=== PATIENT | female | born 1950 | race Caucasian/White ===

== ENCOUNTER 2016-05-16 10:35 | Outpatient (CLI) | payer MEDICARE, MEDICAID ==
[2016-05-16 11:20] LABS: ALT (SGPT) 9 U/L (0-55); AST (SGOT) 21 U/L (5-34); Alkaline Phosphatase 65 U/L (40-150); Bilirubin, Direct 0.1 mg/dL (0.1-0.3); Bilirubin, Total 0.4 mg/dL (0.2-1.2); Protein, Total 7.1 g/dL (5.8-8.1)
== END 2016-05-16 10:36 | disposition home or self-care (01) ==
LOC: BURLAB 10:35
PROVIDERS: ATTEND Internal Medicine
DX: K50.90 Crohn's disease, unspecified, without complications (principal)
CPT/HCPCS: 36415; 80076

== ENCOUNTER 2016-06-20 14:08 | Outpatient (CLI) | payer MEDICARE, MEDICAID ==
[2016-06-20 15:21] LABS: ALT (SGPT) 9 U/L (0-55); AST (SGOT) 18 U/L (5-34); Alkaline Phosphatase 76 U/L (40-150); Bilirubin, Direct 0.1 mg/dL (0.1-0.3); Bilirubin, Total 0.3 mg/dL (0.2-1.2); Protein, Total 7.1 g/dL (5.8-8.1)
--- NOTE | 2016-06-20 20:45 | RAD ---
RIGHT KNEE THREE VIEWS 06/20/16 There is prominent medial joint space narrowing, large osteophytes medially and some bony sclerosis, all consistent with osteoarthritis. A few central osteophytes are forming. The patellofemoral joint shows osteophytes and some irregularity of the articular surface of the patella. No fracture or leslie nt effusion was seen. There are some vague bony densities in the popliteal area that could potential ly be loose bodies, but other imaging studies would be needed to determine this. IMPRESSION: Moderately severe osteoarthritis. POS: HOME
--- NOTE | 2016-06-20 20:47 | RAD ---
LEFT KNEE THREE VIEWS 06/20/16 Comparison is made with the views of the right knee. In similar fashion, there is osteoarthritis con sisting of medial joint space narrowing, osteophytes and slight bony sclerosis. While prominent, it is not quite as bad as the right side. Patellofemoral osteophytes are also present. No fracture or j oint effusion was seen. 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 IMPRESSION: Moderately severe osteoarthritis, though not quite as prominent as the right knee. POS: HOME
--- NOTE | 2016-06-20 20:49 | RAD ---
RIGHT SHOULDER TWO VIEWS 06/20/16 No fracture or dislocation was seen. The AC joint is not widened. There is slight superior subluxati on of the humeral head with narrowing of the space between the acromion and the top of the humeral h ead. This suggests the possibility of chronic rotator cuff thinning. A few osteophytes are seen in t he AC joint. There is no area of bony destruction. IMPRESSION: Degenerative changes and possible rotator cuff thinning as noted above. POS: HOME
== END 2016-06-20 14:09 | disposition home or self-care (01) ==
LOC: BURRAD 14:08
PROVIDERS: ATTEND Physician Assistant
DX: M25.561 Pain in right knee (principal); M25.562 Pain in left knee; K50.90 Crohn's disease, unspecified, without complications; M17.11 Unilateral primary osteoarthritis, right knee
CPT/HCPCS: 36415; 80076

== ENCOUNTER 2016-08-08 09:49 | Outpatient (CLI) | payer MEDICARE, MEDICAID ==
[2016-08-08 10:21] LABS: Hemoglobin 10.1 g/dL (12.0-16.0); Mean Corpuscular HGB CONC 31.8 g/dL (32.0-36.0); Mean Corpuscular Hemoglobin 32.8 pg (27.0-31.0); Mean Platelet Volume 7.2 fL (7.4-10.4); Platelet Count 291 thou/uL (130-400); RBC Distribution Width 15.1 % (11.5-14.5); Red Blood Cell (RBC) Count 3.09 mill/uL (4.20-5.40); White Blood Cell (WBC) Count 6.1 thou/uL (4.8-10.8)
[2016-08-08 11:10] LABS: ALT (SGPT) 9 U/L (0-55); AST (SGOT) 14 U/L (5-34); Albumin 3.8 g/dL (3.4-4.8); Alkaline Phosphatase 70 U/L (40-150); Anion Gap 18 mmol/L (10-20); BUN (Urea Nitrogen) 12 mg/dL (9.8-20.1); Bilirubin, Total 0.3 mg/dL (0.2-1.2); Calc. Creatinine Clearance 0 mL/min (70-130); Calcium 9.1 mg/dL (7.8-10.44); Carbon Dioxide 19 mmol/L (23-31); Chloride 108 mmol/L (98-107); Estimated GFR-MDRD 59; Globulin 2.7 g/dL (2.4-3.5); Glucose 126 mg/dL (80-115); Potassium 4.5 mmol/L (3.5-5.1); Protein, Total 6.5 g/dL (5.8-8.1); Sodium 140 mmol/L (136-145)
== END 2016-08-08 09:50 | disposition home or self-care (01) ==
LOC: BURLAB 09:49
PROVIDERS: ATTEND Internal Medicine
DX: K50.90 Crohn's disease, unspecified, without complications (principal)
CPT/HCPCS: 36415; 80053; 82306; 85027

== ENCOUNTER 2016-11-13 10:23 | Outpatient (CLI) | payer MEDICARE, MEDICAID ==
[2016-11-13 10:47] LABS: Hemoglobin 11.6 g/dL (12.0-16.0); Mean Corpuscular HGB CONC 31.4 g/dL (32.0-36.0); Mean Corpuscular Hemoglobin 32.4 pg (27.0-31.0); Platelet Count 284 thou/uL (130-400); RBC Distribution Width 14.8 % (11.5-14.5); Red Blood Cell (RBC) Count 3.58 mill/uL (4.20-5.40); White Blood Cell (WBC) Count 5.1 thou/uL (4.8-10.8)
[2016-11-13 11:19] LABS: ALT (SGPT) 10 U/L (8-55); AST (SGOT) 16 U/L (5-34); Albumin 3.8 g/dL (3.4-4.8); Alkaline Phosphatase 64 U/L (40-150); Anion Gap 16 mmol/L (10-20); BUN (Urea Nitrogen) 9 mg/dL (9.8-20.1); Bilirubin, Total 0.3 mg/dL (0.2-1.2); Calc. Creatinine Clearance 0 mL/min (70-130); Calcium 9.3 mg/dL (7.8-10.44); Carbon Dioxide 21 mmol/L (23-31); Chloride 108 mmol/L (98-107); Estimated GFR-MDRD 56; Glucose 128 mg/dL (80-115); Potassium 4.3 mmol/L (3.5-5.1); Protein, Total 6.8 g/dL (6.0-8.3); Sodium 141 mmol/L (136-145)
== END 2016-11-13 10:24 | disposition home or self-care (01) ==
LOC: BURLAB 10:23
PROVIDERS: ATTEND Internal Medicine
DX: K56.69 Other intestinal obstruction (principal); Z79.899 Other long term (current) drug therapy
CPT/HCPCS: 36415; 80053; 82306; 85027

== ENCOUNTER 2019-04-08 17:53 | Emergency (ER) | payer MEDICARE, MEDICAID ==
[~2019-04-08 17:53] MED LIST: Iopamidol 370 76% 100 ML VIAL ONE
[2019-04-08 19:01] LABS: #Lymphocytes 0.3 thou/uL (1.20-3.40); #Monocytes 0.2 thou/uL (0.11-0.59); #Neutrophils 3.6 thou/uL (1.40-6.50); %Eosinophils 1.2 % (0.0-10.0); %Lymphocytes 6.2 % (21.0-51.0); %Monocytes 4.9 % (0.0-10.0); %Neutrophils 86.6 % (42.0-75.0); Hemoglobin 10.2 g/dL (12.0-16.0); Mean Corpuscular HGB CONC 30.3 g/dL (32.0-36.0); Mean Corpuscular Hemoglobin 29.8 pg (27.0-31.0); Mean Corpuscular Volume 98.3 fL (78.0-98.0); Mean Platelet Volume 8.3 fL (7.4-10.4); Platelet Count 276 thou/uL (130-400); RBC Distribution Width 14.9 % (11.5-14.5); Red Blood Cell (RBC) Count 3.42 mill/uL (4.20-5.40); White Blood Cell (WBC) Count 4.2 thou/uL (4.8-10.8)
[2019-04-08] MEDS ORDERED: cefTRIAXone\\ROCEPHIN 2 GM VIAL ONE (19:03)
[2019-04-08] MEDS ORDERED: Sodium Chloride 0.9% 100 ML ONE (19:03)
[2019-04-08] MEDS ORDERED: Acetaminophen 500 MG TAB ONE (19:03)
[2019-04-08 19:15] LABS: ALT (SGPT) Less than 7 U/L (8-55); AST (SGOT) 11 U/L (5-34); Albumin 3.7 g/dL (3.4-4.8); Alkaline Phosphatase 76 U/L (40-110); Anion Gap 16 mmol/L (10-20); BUN (Urea Nitrogen) 13 mg/dL (9.8-20.1); Bilirubin, Total 0.5 mg/dL (0.2-1.2); CK (CPK) 30 U/L (29-168); Calc. Creatinine Clearance 0 mL/min (70-130); Calcium 8.9 mg/dL (7.8-10.44); Carbon Dioxide 22 mmol/L (23-31); Chloride 105 mmol/L (98-107); Estimated GFR-MDRD 48; Globulin 2.9 g/dL (2.4-3.5); Glucose 116 mg/dL (80-115); Protein, Total 6.6 g/dL (6.0-8.3); Sodium 139 mmol/L (136-145)
[2019-04-08 19:41] LABS: Bilirubin Small (Negative); Blood, Urine Negative (Negative); Clarity Slightly Cloudy (Clear); Glucose, Urine (Dipstick) Negative (Negative); Leukocyte Negative (Negative); Nitrite Negative (Negative); Protein, Urine (Dipstick) Trace mg/dL (Neg-Trace); Urobilinogen 0.2 mg/dL (Less than 2)
[2019-04-08] MEDS ORDERED: Ketorolac Tromethamine 30 MG/ML VIAL ONE (22:05)
--- NOTE | 2019-04-08 22:22 | CT ---
CT ABDOMEN WITH CONTRAST CT PELVIS WITH CONTRAST: DATE: 04/08/2019 HISTORY: 69-year-old female with fever and left-sided abdominal pain COMPARISON: 05/28/2014 TECHNIQUE: IV injection of iodinated contrast media: administered. Oral contrast media:Not administered FINDINGS: Whereas previously there was a left-sided ileostomy, there is a new finding of a very large 16 x 24 c m defect in the anterior abdominal wall musculature, centered to the left of midline, through which the distal gastric body and antrum, a small portion of the tip of the left lobe of liver, much of the colon, and multiple small bowel loops, herniate into the subcutaneous fat. No small bowel dilation. No mesenteric or omental edema. No other abnormality identified involving liver, pancreas, kidneys, or adrenals. Spleen is at upper limits of normal in size. Atherosclerotic callus patient without aneurysm of abdominal aorta. Decompressed urinary bladder. No free fluid within pelvic cavity or abdominal cavity. No colonic diverticulitis. Suture line at partially herniated portion of colon at right upper quadrant. IMPRESSION: 1) large left anterior abdominal hernia involving a very wide defect in the abdominal wall, containin g portions of colon, small intestine, stomach, and small portion of liver. 2) no evidence of obstruction or strangulation. 3) status post right hemicolectomy.
== END 2019-04-08 22:43 | disposition home or self-care (01) ==
LOC: BURERS 17:53
DX: R50.9 Fever, unspecified (principal); E66.01 Morbid (severe) obesity due to excess calories; D50.9 Iron deficiency anemia, unspecified; K50.90 Crohn's disease, unspecified, without complications; Z79.899 Other long term (current) drug therapy
CPT/HCPCS: 74177; 80053; 81003; 82550; 83605; 85025; 87040; 87086; 87149; 93005; 96365; 96375; J0696; J1885; J3490; Q9967

== ENCOUNTER 2019-08-11 10:56 | Emergency (ER) | payer MEDICARE, MEDICAID, OTHER ==
[2019-08-11 12:02] LABS: ALT (SGPT) 11 U/L (8-55); AST (SGOT) 22 U/L (5-34); Albumin 2.5 g/dL (3.4-4.8); Alkaline Phosphatase 129 U/L (40-110); Anion Gap 16 mmol/L (10-20); BUN (Urea Nitrogen) 43 mg/dL (9.8-20.1); Bilirubin, Total 0.4 mg/dL (0.2-1.2); Calc. Creatinine Clearance 0 mL/min (70-130); Calcium 7.7 mg/dL (7.8-10.44); Carbon Dioxide 15 mmol/L (23-31); Chloride 107 mmol/L (98-107); Estimated GFR-MDRD 22; Globulin 3.1 g/dL (2.4-3.5); Glucose 119 mg/dL (80-115); Potassium 3.8 mmol/L (3.5-5.1); Protein, Total 5.6 g/dL (6.0-8.3); Sodium 134 mmol/L (136-145)
[2019-08-11 12:08] LABS: Hemoglobin 8.9 g/dL (12.0-16.0); Mean Corpuscular HGB CONC 30.2 g/dL (32.0-36.0); Mean Corpuscular Hemoglobin 28.4 pg (27.0-31.0); Mean Platelet Volume 8.5 fL (7.4-10.4); Platelet Count 213 thou/uL (130-400); RBC Distribution Width 14.9 % (11.5-14.5); Red Blood Cell (RBC) Count 3.12 mill/uL (4.20-5.40); White Blood Cell (WBC) Count 2.6 thou/uL (4.8-10.8)
[2019-08-11 12:14] LABS: #Eosinphils 0.1 thou/uL (0.0-0.7); #Lymphocytes 0.1 thou/uL (1.20-3.40); #Monocytes 0.1 thou/uL (0.11-0.59); #Neutrophils 2.3 thou/uL (1.40-6.50); %Basophils 1.4 % (0.0-1.0); %Lymphocytes 4.3 % (21.0-51.0); %Monocytes 4.7 % (0.0-10.0); %Neutrophils 86.6 % (42.0-75.0); Band 3 % (5-11); Eosinophils 1 % (0-10); Lymphocytes 7 % (21-51); MDiff Complete? YES; Metamyelocyte 1 % (0-0); Neutrophil 88 % (42-75)
[2019-08-11] MEDS ORDERED: Piperacillin/Tazobactam 4.5 GM VIAL ONE (12:37)
[2019-08-11] MEDS ORDERED: Sodium Chloride 0.9% 100 ML ONE (12:39)
[2019-08-11 13:27] LABS: Bilirubin Small (Negative); Blood, Urine Negative (Negative); Clarity Cloudy (Clear); Glucose, Urine (Dipstick) Negative (Negative); Leukocyte Negative (Negative); Nitrite Negative (Negative); Protein, Urine (Dipstick) Trace mg/dL (Neg-Trace); Urobilinogen 0.2 mg/dL (Less than 2)
--- NOTE | 2019-08-11 16:22 | RAD ---
PORTABLE CHEST: 08/11/19 An AP portable film at 1149 is compared with a 05/29/14 study. The heart is normal in size and the lungs are clear. No acute infiltrate or effusion was seen. A sli ghtly sclerotic area in the left lateral chest above the costophrenic angle was present in 2014 and h as not changed. Slight haziness near the cardiac apex is probably a fat pad plus artifact from portal filming. There is no sign of effusion or lobar pneumonia. The trachea is midline. IMPRESSION: No acute finding. POS: HOME
== END 2019-08-11 13:42 | disposition short-term general hospital (02) ==
LOC: BURERS 10:56
DX: A41.9 Sepsis, unspecified organism (principal); R65.20 Severe sepsis without septic shock; N17.9 Acute kidney failure, unspecified; I10 Essential (primary) hypertension; D50.9 Iron deficiency anemia, unspecified; Z79.899 Other long term (current) drug therapy; Z79.01 Long term (current) use of anticoagulants
CPT/HCPCS: 51701; 71045; 80053; 81003; 83605; 85025; 87040; 87081; 87086; 87430; 87804; 96361; 96365; 96367; J2543; J3370; J3490; U0001